=== PATIENT | female | born 1960 | race African-American/Black ===

== ENCOUNTER 2021-06-14 11:52 | Emergency (ER) | payer OTHER ==
[~2021-06-14] VITALS: Ht 170.2 cm; Wt 130.0 kg
--- NOTE | 2021-06-14 13:12 | PHYS DOC ---
Past Medical History Past Medical History: High Cholesterol, Hypertension Smoking Status: Never Smoker Alcohol Use: Rarely General Adult EDM: Chief Complaint: CHEST PAIN HPI: HPI: Patient is a 60 year old female with history of hypertension, hyperlipidemia who presents with anterior chest discomfort starting last night at 6 PM. Started while seated. Describes as a light left-sided substernal discomfort. Does not radiate. No associated shortness of breath, nausea, vomiting, diaphoresis. Pain comes and goes. Slightly worse with some movement. It is not otherwise positional, pleuritic, or exertional. No history of similar pain. No history of cardiac disease. Not a smoker. Review of Systems: Review of Systems: Constitutional: Denies fever or chills. [] Eyes: Denies change in visual acuity. [] HENT: Denies nasal congestion or sore throat. [] Respiratory: Denies cough or shortness of breath. [] Cardiovascular: + chest pain. No edema. [] GI: Denies abdominal pain, nausea, vomiting, bloody stools or diarrhea. [] : Denies dysuria. [] Musculoskeletal: Denies back pain or joint pain. [] Integument: Denies rash. [] Neurologic: Denies headache, focal weakness or sensory changes. [] Endocrine: Denies polyuria or polydipsia. [] Lymphatic: Denies swollen glands. [] Psychiatric: Denies depression or anxiety. [] Heart Score: C/O Chest Pain: Yes HEART Score for Chest Pain: HEART Score for Chest Pain Response (Comments) Value History Slighlty/Non-Suspicious 0 ECG Nonspecific Repolarizatio 1 Age >45 - < 65 1 Risk Factors 1 or 2 Risk Factors 1 Troponin < Normal Limit 0 Total 3 Risk Factors: Risk Factors: HTN, HLD Risk Scores: Score 3: 2.5% MACE over next 6 weeks - Discharge Home Family History: Family History: No family history pertinent to Physical Exam: PE: Constitutional: Well developed, well nourished, no acute distress, non-toxic appearance. [] HENT: Normocephalic, atraumatic, bilateral external ears normal, oropharynx moist, no oral exudates, nose normal. [] Eyes: PERRLA, EOMI, conjunctiva normal, no discharge. [] Neck: Normal range of motion, no tenderness, supple, no stridor. [] Cardiovascular:Heart rate regular rhythm, no murmur [] Lungs & Thorax: Bilateral breath sounds clear to auscultation [] Abdomen: Bowel sounds normal, soft, no tenderness, no masses, no pulsatile masses. [] Skin: Warm, dry, no erythema, no rash. [] Back: No tenderness, no CVA tenderness. [] Extremities: No tenderness, no cyanosis, no clubbing, ROM intact, no edema. [] Neurologic: Alert and oriented X 3, normal motor function, normal sensory function, no focal deficits noted. [] Psychologic: Affect normal, judgement normal, mood normal. [] EKG: EKG: Sinus rhythm. Rate 75. Normal intervals. Normal axis. T wave inversion V1, V2 potentially normal variant. No ST changes. No Q waves. [] Radiology/Procedures: Radiology/Procedures: CXR [] Course & Med Decision Making: Course & Med Decision Making Pertinent Labs and Imaging studies reviewed. (See chart for details) Patient is a 60-year-old female with history of HTN, HLD who presents with light left-sided chest discomfort since 6 PM last night. Not exertional. Not pleuritic. Vital signs are reassuring. Now chest discomfort is only worse with some position changes. Seems most consistent with musculoskeletal pain. EKG is nonischemic. Given duration of discomfort will obtain a single troponin, if negative is reassuring against ACS. Heart score is 3. If negative troponin feel she will be appropriate for outpatient follow-up with her primary care doctor. For other etiologies of chest pain, she has equal breath sounds, no trauma. Less likely pneumothorax, but will obtain a chest x-ray. No infectious symptoms to suggest pneumonia. Is not pleuritic and her vital signs are normal. Do not feel that she requires work-up for PE. No subdiaphragmatic symptoms or tenderness on exam. Do not feel that this is an intra-abdominal problem. Pending work-up with CXR, troponin, CBC, CMP. [id number] Troponin negative. Chest x-ray without acute process. Basic labs overall anai ssuring. Mild anemia to 10.5 for hemoglobin. Feel that she is safe for outpatient follow-up with her PCP. [id number] Leonela Disclaimer: Leonela Disclaimer: This electronic medical record was generated, in whole or in part, using a voice recognition dictation system. Departure Departure Disposition: HOME / SELF CARE / HOMELESS Condition: STABLE Referrals: KATIE MARI MD (PCP) Schedule an appointment with your primary care doctor. Additional Instructions: Your work-up today was largely reassuring. There was no signs of a heart attack or problems with your lungs. Your kidney function, liver function, electrolytes were all normal. You on a slightly low blood count. Your hemoglobin was 10.5. This is not a dangerous finding, but will need to be followed up by your primary care doctor to ensure that it is stabilized. JOVANNA HURT MD Jun 14, 2021 13:12
--- NOTE | 2021-06-14 13:28 | RAD ---
EXAM: CHEST 1 VIEW History: Chest pain COMPARISON: None available. TECHNIQUE: Single portable radiograph of the chest FINDINGS: The cardiac silhouette is unremarkable. The lungs are clear bilaterally. The costophrenic sulci are clear and well demarcated. . IMPRESSION: No radiographic evidence of an acute cardiopulmonary process. Electronically signed by: Jose Knutson MD (06/14/2021 1:25 PM) [id number]
[2021-06-14 13:40] LABS: BASO # 0.1 x10^3/uL (0.0-0.2); BASO % 1 % (0-3); EOS % 1 % (0-3); HEMATOCRIT 32.2 % (36.0-47.0); HEMOGLOBIN 10.5 g/dL (12.0-15.5); LYMPH # 1.3 x10^3/uL (1.0-4.8); LYMPH % 26 % (24-48); MEAN CORPUSCULAR HEMOGLOBIN 27 pg (25-35); MEAN CORPUSCULAR HGB CONC 33 g/dL (31-37); MEAN CORPUSCULAR VOLUME 84 fL (79-100); MONO # 0.3 x10^3/uL (0.0-1.1); MONO % 7 % (0-9); NEUT # 3.3 x10^3/uL (1.8-7.7); NEUT % 65 % (31-73); PLATELET COUNT 330 x10^3/uL (140-400); RED BLOOD COUNT 3.84 x10^6/uL (3.50-5.40); RED CELL DISTRIBUTION WIDTH 18.7 % (11.5-14.5); WHITE BLOOD COUNT 5.1 x10^3/uL (4.0-11.0)
[2021-06-14 13:49] LABS: CREATININE 0.9 mg/dL (0.6-1.0); GFR 77.5
[2021-06-14 13:54] LABS: ALBUMIN 3.6 g/dL (3.4-5.0); ALBUMIN/GLOBULIN RATIO 0.8 (1.0-1.7)
[2021-06-14 13:55] LABS: TOTAL BILIRUBIN 0.7 mg/dL (0.2-1.0)
[2021-06-14 15:29] VITALS: BP 148/70
== END 2021-06-14 15:40 | disposition home or self-care (01) ==
LOC: ER 11:52
DX: R07.2 Precordial pain (principal); E78.00 Pure hypercholesterolemia, unspecified; I10 Essential (primary) hypertension
CPT/HCPCS: 36415; 71045; 80053; 84484; 85025; 93005; 99285-25